=== PATIENT | female | born 1985 | race Caucasian/White ===

== ENCOUNTER 2016-07-16 12:05 | Emergency (ER) | payer BC, OTHER ==
[~2016-07-16] VITALS: Ht 165.1 cm; Wt 59.0 kg
[2016-07-16 12:12] VITALS: Ht 165.1 cm; Wt 59.0 kg
[2016-07-16] MEDS ORDERED: SERT25TA PO (13:02)
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
[2016-07-16 16:48] VITALS: BP 128/83; PULSE 94; RESP 16; TEMP 97.5
== END 2016-07-16 16:49 | disposition home or self-care (01) ==
LOC: E/R 12:05
DX: T74.11XA Adult physical abuse, confirmed, initial encounter (principal); R40.2252 Coma scale, best verbal response, oriented, at arrival to emergency department; F17.210 Nicotine dependence, cigarettes, uncomplicated
CPT/HCPCS: 99282